=== PATIENT | male | born 1990 | race Caucasian/White ===

== ENCOUNTER → 2023-08-02 07:34 | Outpatient (REF) | payer BC, SELFPAY | LOC: EMG 07:34 | PROVIDERS: ATTENDING PHYSICIAN Physician Assistant | DX: R20.2 Paresthesia of skin (principal); M25.531 Pain in right wrist; M25.532 Pain in left wrist | CPT/HCPCS: 95886; 95911 ==

== ENCOUNTER → 2023-12-13 14:52 | Outpatient (REF) | payer BC, SELFPAY | LOC: RCS 14:52 | PROVIDERS: ATTENDING PHYSICIAN Physician Assistant | DX: R07.89 Other chest pain (principal); I45.6 Pre-excitation syndrome; R00.2 Palpitations | CPT/HCPCS: 93306 ==

== ENCOUNTER → 2024-02-02 17:34 | Outpatient (REF) | payer BC, SELFPAY | LOC: RAD 17:34 | PROVIDERS: ATTENDING PHYSICIAN Physician Assistant | DX: M25.562 Pain in left knee (principal) | CPT/HCPCS: 73564 ==

== ENCOUNTER → 2024-03-30 14:07 | Outpatient (REF) | payer BC, SELFPAY | LOC: RCS 14:07 | PROVIDERS: ATTENDING PHYSICIAN Physician Assistant | DX: R07.9 Chest pain, unspecified (principal) | CPT/HCPCS: 93017 ==

== ENCOUNTER → 2024-06-20 15:35 | Outpatient (REF) | payer BC, SELFPAY | LOC: RAD 15:35 | PROVIDERS: ATTENDING PHYSICIAN Physician Assistant | DX: R10.32 Left lower quadrant pain (principal); R19.09 Other intra-abdominal and pelvic swelling, mass and lump | CPT/HCPCS: 76882 ==

== ENCOUNTER → 2024-09-18 14:51 | Outpatient (REF) | payer BC, SELFPAY | LOC: DHSLP 14:51 | PROVIDERS: ATTENDING PHYSICIAN Physician Assistant | DX: G47.33 Obstructive sleep apnea (adult) (pediatric) (principal); R06.83 Snoring | CPT/HCPCS: 95800 ==

== ENCOUNTER → 2025-01-26 09:23 | Outpatient (REF) | payer BC, SELFPAY | LOC: RAD 09:23 | PROVIDERS: ATTENDING PHYSICIAN Physician Assistant | DX: K21.9 Gastro-esophageal reflux disease without esophagitis (principal) | CPT/HCPCS: 74246 ==

== ENCOUNTER → 2025-03-22 15:52 | Outpatient (REF) | payer BC, SELFPAY | LOC: HWRCS 15:52 | PROVIDERS: ATTENDING PHYSICIAN Physician Assistant | DX: I77.810 Thoracic aortic ectasia (principal) | CPT/HCPCS: 93306 ==